=== PATIENT | female | born 1935 | race African-American/Black ===

== ENCOUNTER 2021-07-30 09:40 | Emergency (ER) | payer MEDICARE, SELFPAY ==
--- NOTE | ~2021-07-30 | XR_ITS ---
XR hip RT min 3V w AP pelvis, XR femur RT min 2V 07/30/2021 12:30 Indication: Status post fall. Hip and leg pain. Procedure: 4 views right hip and 2 views right femur Comparison: No prior studies for comparison. 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 The pelvic rings are intact. Mild ostei tis pubis. There is lower lumbar spondylosis. There are degenerative changes of the right knee. Jessica l mineralization. No acute fracture or traumatic malalignment. Impression: 1: No acute fracture. Reviewed, dictated and finalized at location A. 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 Impression: 1: No acute fracture.
--- NOTE | ~2021-07-30 | XR_ITS ---
EXAMINATION: XR sacrum coccyx min 2V DATE: 07/30/2021 12:30 INDICATION: Sacrococcygeal injury. Fall. TECHNIQUE: 3 views of the sacrum and coccyx were obtained. COMPARISON: None. FINDINGS: Bone alignment is normal. No fracture. There is severe lumbar spondylosis. There is moderat e osteoarthritis of the hips. Osteitis pubis is noted. There is mild osteoarthritis of the sacroiliac joints. IMPRESSION: 1. No fracture. 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 No fracture.
--- NOTE | ~2021-07-30 | XR_ITS ---
EXAMINATION: XR lumbar spine min 4V DATE: 07/30/2021 12:30 INDICATION: Low back injury. Fall. TECHNIQUE: 5 views of lumbar spine were obtained. COMPARISON: None. FINDINGS: There is a transitional segment at lumbosacral junction that is designated S1. There is 4 d egrees levocurvature of lumbar spine. There is 3 mm anterolisthesis of L4 on L5. Vertebral body heigh ts are normal. There is mildly decreased disc height at L3-L4 and L4-L5 and severely decreased disc h eight at L5-S1. There is multilevel facet joint osteoarthritis, severe bilaterally in lower lumbar sp ine. IMPRESSION: 1. Severe lumbar spondylosis. Reviewed, dictated and finalized at location A. 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
--- NOTE | ~2021-07-30 | XR_ITS ---
EXAMINATION: XR tibia fibula RT 2V DATE: 07/30/2021 12:30 INDICATION: Right lower leg injury. TECHNIQUE: 2 views of right tibia and fibula on 4 radiographs were obtained. COMPARISON: None. FINDINGS: Bone alignment is normal. No fracture. There is moderate tricompartmental osteoarthritis of the knee. No knee joint effusion. There is an osteochondral lesion of lateral talar dome. There are enthesophytes at the posterior and plantar aspects of calcaneal tuberosity. IMPRESSION: 1. Polyarticular osteoarthritis. Reviewed, dictated and finalized at location A. 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
--- NOTE | ~2021-07-30 | XR_ITS ---
EXAMINATION: XR knee LT 3V DATE: 07/30/2021 12:30 INDICATION: Left knee injury. TECHNIQUE: 3 views of left knee were obtained. COMPARISON: None. 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 No fracture. No peripros thetic lucency to suggest loosening or infection. No knee joint effusion. IMPRESSION: 1. 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
[2021-07-30 09:56] VITALS: BP 116/55; PULSE 87; RESP 18; TEMP 36.2; O2SAT 100
[2021-07-30 11:34] VITALS: BP 116/55; PULSE 80; RESP 20; TEMP 36.7; O2SAT 100
[2021-07-30] MEDS: HYDROcodone/acetaminophen (*CRX) 5-325 MG TABLET 1 TAB PO (11:43)
[2021-07-30 13:29] VITALS: BP 138/72; PULSE 78; RESP 18; O2SAT 99
--- NOTE | 2021-07-30 13:30 | ED.GENADULT ---
HPI - General Adult General Chief complaint: Fall <Dusty Gill PA-C - Last Filed: 07/30/21 14:33> Stated complaint: Fall. <Dusty Gill PA-C - Last Filed: 07/30/21 14:33> Time Seen by Provider: 07/30/21 11:24 <Dusty Gill PA-C - Last Filed: 07/30/21 14:33> Source: patient <PENELOPE Resendiz Last Filed: 07/30/21 14:33> Mode of arrival: ambulatory <PENELOPE Resendiz Last Filed: 07/30/21 14:33> Limitations: no limitations <Dusty Gill PA-C - Last Filed: 07/30/21 14:33> History of Present Illness HPI narrative: Patient is an 85-year-old female with chief complaint of pain to her low back, coccyx, right thigh and knees after falling on her daughter's porch on 07-21-21. Patient reports that she has been taking Aleve without remittance of her symptoms. Patient reports that she had left knee replaced many years ago and occasionally has cortisone injections in her right knee. She reports that her knees are not as stable as it used to be and she uses a cane or a walker to assist with ambulation. Patient has not been wearing her knee brace for support per her daughter. Patient denies head impact, headache, neck pain or loss of consciousness. Patient denies loss of bowel or bladder function or saddle paresthesias. Patient states that she is visiting the area from out of town for the holidays. She reports that she is staying with her daughter. Patient is requesting a knee injection of fluid drainage from her right knee. Patient denies any erythema, fever, chills, vomiting, diarrhea, chest pain, shortness of breath, headache, changes in vision or hearing or altered mental status. <Dusty Gill PA-C - Last Filed: 07/30/21 14:33> Related Data Allergies/adverse reactions: Allergies Allergy/AdvReac Type Severity Reaction Status Date / Time No Known Allergies Allergy Verified 07/30/21 11:43 <Dusty Gill PA-C - Last Filed: 07/30/21 14:33> Review of Systems Review of Systems: CONSTITUTIONAL: Denies fever, chills, or sweats. EYES: Denies visual changes, redness, or discharge. ENT: Denies rhinorrhea, congestion, sore throat, or otalgia. CARDIOVASCULAR: Denies chest pain, palpitations, or edema. RESPIRATORY: Denies cough or dyspnea. GASTROINTESTINAL: Denies abdominal pain, nausea, vomiting, or diarrhea. GENITOURINARY: Denies dysuria or hematuria. SKIN: Denies rash or itching. MUSCULOSKELETAL: Reports back pain buttock pain leg pain knee pain NEUROLOGIC: Denies headache, numbness, dizziness, or weakness. PSYCHIATRIC: Denies anxiety or depression. <Dusty Gill PA-C - Last Filed: 07/30/21 14:33> Exam Narrative: GENERAL: Well-appearing, well-nourished, and in no acute distress. HEAD: Normocephalic, atraumatic.No abrasions, laceration, signs of injury. EYES: PERRLA and EOMI. ENT: Nares clear, no rhinorrhea or epistaxis. Mucous membranes moist. Oropharynx without tonsillar hypertrophy exudate or other lesions. Bilateral TMs pearly dhaliwal nonbulging. No hemotympanum. NECK: Supple. No adenopathy or masses.ROM intact. No pain. CHEST: Clear to auscultation. No respiratory distress. No wheezes rales or rhonchi HEART: Regular rate and rhythm. No murmur heard. Normal peripheral pulses. ABDOMEN: Soft, nontender, nondistended, normal active bowel sounds. BACK: Diffuse lower lumbar tenderness with bruise over sacrum EXTREMITIES: tenderness to lateral right hip and anterior thigh. Swelling to right knee. Flexion and extension intact but slightly limited flexion. No open wounds. Healed surgical scar over left knee without erythema. SKIN: Warm, dry, no rash. NEURO: No focal deficits. Alert and oriented x3. PSYCH: Normal mood and affect. <Dusty Gill PA-C - Last Filed: 07/30/21 14:33> Course Vital Signs Vital signs: Vital Signs Temperature 97.1 F L 07/30/21 09:56 Pulse Rate 87 07/30/21 09:56 Respiratory Rate 18 07/30/21 09:56 Blood Pressure 116/55 L
== END 2021-07-30 13:31 | disposition home or self-care (01) ==
PROVIDERS: Emergency Provider General Practice
DX: S30.0XXA Contusion of lower back and pelvis, initial encounter (principal); M25.461 Effusion, right knee; Z96.652 Presence of left artificial knee joint; M47.816 Spondylosis without myelopathy or radiculopathy, lumbar region; M17.11 Unilateral primary osteoarthritis, right knee; W10.9XXA Fall (on) (from) unspecified stairs and steps, initial encounter
CPT/HCPCS: 72110; 72220; 73502; 73552; 73562; 73590; 99284; A9270